=== PATIENT | female | born 1930 | race Caucasian/White ===

== ENCOUNTER 2018-06-11 23:53 | Inpatient (IN) | payer OTHER ==
[2018-06-11 23:58] VITALS: BMI 35.3
--- NOTE | 2018-06-11 23:58 | C.PDOC ---
History Of Present Illness Patient became more short of breath at home. No chest pain or palpitations. Medics gave 1 sl ntg. Pt is some respiratory distress. Placed on bipap on arrival. Speaking in 2-3 word sentences Time Seen by Provider: 06/11/18 23:56 Chief Complaint (Nursing): Respiratory Distress Past Medical History Reviewed: Historical Data, Nursing Documentation, Vital Signs - Medical History PMH: Anxiety (on clonazapam), Arthritis, Asthma, Bronchitis, CHF, COPD, Depression, HTN Denies: Chronic Kidney Disease Family History: States: No Known Family Hx - Social History Hx Tobacco Use: No Hx Alcohol Use: No Hx Substance Use: No - Immunization History Hx Tetanus Toxoid Vaccination: No Hx Influenza Vaccination: No Hx Pneumococcal Vaccination: No ED Course And Treatment - Laboratory Results Result Diagrams: 06/12/18 00:20 06/12/18 01:01 ECG: Interpreted By Me, Viewed By Me ECG Rhythm: Sinus Rhythm (88), L BBB, Nonspecific Changes O2 Sat by Pulse Oximetry: 99 Pulse Ox Interpretation: Normal - Radiology CXR: Interpreted by Me, Viewed By Me CXR Interpretation: Yes: Other (mild vasc congestion, cabg, unchanged from 09/12/15). No: Infiltrates, Fracture, Pnemothorax Critical Care Time - Critical Care Note Total Time (in mins): 30 Documented critical care: time excludes all time spent performing seperately billable procedures. Disposition Discussed With : Mynor Gee Comment: acepted the pt on his service and took over the care at 1:27 AM Doctor Will See Patient In The: Hospital Counseled Patient/Family Regarding: Studies Performed, Diagnosis - Disposition Disposition: HOSPITALIZED Disposition Time: 23:57 Condition: FAIR Forms: [facility] (Pakistani) - POA Present On Arrival: Poor Glycemic Control - Clinical Impression Clinical Impression: Dyspnea, Respiratory distress, COPD exacerbation, CHF (congestive heart failure) Decision To Admit - Pt Status Changed To: Hospital Disposition Of: Inpatient - Admit Certification Admit to Inpatient:: After my assessment, the patient will require hospitalization for at least two midnights. This is because of the severity of symptoms shown, intensity of services needed, and/or the medical risk in this patient being treated as an outpatient. - InPatient: Physician Admission Certification: I certify that this patient requires 2 or more midnights of care for the following reason:: After my assessment, the patient will require hospitalization for at least two midnights. This is because of the severity of symptoms shown, intensity of services needed, and/or the medical risk in this patient being treated as an outpatient. - . Bed Request Type: Telemetry Admitting Physician: Mynor Gee Patient Diagnosis: Dyspnea, Respiratory distress, COPD exacerbation, CHF (congestive heart failure)
[2018-06-12] MEDS: Albuterol-Ipratrop 3 mg / 0.5 (3 ml) UD IH SCH (00:04)
[2018-06-12] MEDS ORDERED: Albuterol-Ipratrop 3 mg / 0.5 (3 ml) UD ONE (00:11)
[2018-06-12 00:30] LABS: BASO # 0.1 K/uL (0.0-0.2); BASO % 0.9 % (0.0-2.0); EOS # 0.2 K/uL (0.0-0.7); EOS % 2.2 % (0.0-4.0); HEMOGLOBIN 11.8 g/dL (11.0-16.0); LYMPH # 1.5 K/uL (1.0-4.3); LYMPH % 15.4 % (20.0-40.0); MEAN CORPUSCULAR HEMOGLOBIN 32.4 pg (27.0-31.0); MEAN CORPUSCULAR HGB CONC 32.7 g/dL (33.0-37.0); MEAN PLATELET VOLUME 10.6 fL (7.2-11.7); MONO # 0.6 K/uL (0.0-0.8); MONO % 5.9 % (0.0-10.0); NEUT # 7.5 K/uL (1.8-7.0); NEUT % 75.6 % (50.0-75.0); RBC 3.66 Mil/uL (3.80-5.20); RED CELL DISTRIBUTION WIDTH 14.7 % (11.5-14.5); WHITE BLOOD COUNT 9.9 K/uL (4.8-10.8)
[2018-06-12 00:37] LABS: PROTHROMBIN TIME 10.7 SECONDS (9.7-12.2)
[2018-06-12 00:45] LABS: ARTERIAL BLOOD GAS HCO3 26.6 mmol/L (21-28); ARTERIAL BLOOD GAS PCO2 49 mm/Hg (35-45); ARTERIAL BLOOD GAS PH 7.37 (7.35-7.45); ARTERIAL BLOOD GAS PO2 90 mm/Hg (80-100); ARTERIAL BLOOD GAS TCO2 29.8 mmol/L (22-28)
[2018-06-12 01:10] LABS: ALB/GLOB RATIO 1.6 (1.0-2.1); ALBUMIN 3.9 g/dL (3.5-5.0); CALCIUM 8.2 mg/dl (8.6-10.4)
[2018-06-12 01:22] LABS: TROPONIN I 0.028 ng/mL (0.00-0.120)
[2018-06-12] MEDS ORDERED: Albuterol-Ipratrop 3 mg / 0.5 (3 ml) UD INH SCH (04:00)
--- NOTE | 2018-06-12 08:42 | RAD ---
Date of service: 06/12/2018 HISTORY: SOB COMPARISON: Portable chest 09/12/2015. FINDINGS: LUNGS: No definite infiltrate is appreciate bilaterally. However, reiteration of linear atelectasis or fibrosis is seen at the periphery of the bilateral lung shirley mildly. PLEURA: No significant pleural effusion identified, no pneumothorax apparent. CARDIOVASCULAR: No aortic atherosclerotic calcification present. Stable cardiomegaly. No definite pulmonary vascular congestion appreciated. No pulmonary vascular congestion. OSSEOUS STRUCTURES: No significant abnormalities. VISUALIZED UPPER ABDOMEN: Normal. OTHER FINDINGS: None. IMPRESSION: Stable cardiomegaly. No definite pulmonary vascular congestion. Fibrotic changes versus linear atelectasis are scattered infrequently bilaterally in the periphery once again.
[2018-06-12] MEDS: Metoprolol Succinate 50 mg XL Tab PO SCH (09:52)
[2018-06-12] MEDS: Pantoprazole 40 mg EC Tab PO SCH (09:52)
[2018-06-12] MEDS ORDERED: Enoxaparin 40 mg Syringe SC SCH (10:00)
[2018-06-12] MEDS ORDERED: DOXYCYCLINE HYCLATE 50 MG PO SCH (10:00)
[2018-06-12] MEDS: Enoxaparin 40 mg Syringe SC SCH (11:00)
[2018-06-12] MEDS: Albuterol-Ipratrop 3 mg / 0.5 (3 ml) UD INH SCH ×2 (12:00→19:39)
[2018-06-12] MEDS: Moxifloxacin IV 400mg/250ml NS 400 MG/250 ML BAG IVPB SCH (14:14)
[2018-06-12] MEDS: MethylPREDNISolone 40 mg Vial IVP SCH ×2 (14:14→21:57)
--- NOTE | 2018-06-12 14:21 | CP.PCM.CON ---
History of Present Illness - History of Present Illness History of Present Illness: reason for consultation: shortness of breath 88-year-old female with long history of smoking in the past, COPD, hypertension who presented to the emergency room with worsening shortness of breath. Denies fever chills, denies chest pain. Also complaining of cough which is mostly dry. Patient was placed on BiPAP for respiratory distress PMHx: HTN, CHF (EF of 35% per son), asthma. 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 FMHx: father for MIN in his 70s. Social: Smoked half a cigar since 9 years old, stopped 2 years ago. Denied ETOH or drugs. Lives alone. Walks with cane and only tolerating one flight Review of Systems - Review of Systems All systems: reviewed and no additional remarkable complaints except (complaini ng of shortness of breath) Past Patient History - Infectious Disease Hx of Infectious Diseases: None - Past Social History Smoking Status: Former Smoker - CARDIAC Hx Congestive Heart Failure: Yes Hx Hypertension: Yes - PULMONARY Hx Asthma: Yes Hx Bronchitis: Yes Hx Chronic Obstructive Pulmonary Disease (COPD): Yes - NEUROLOGICAL Hx Neurological Disorder: Yes - HEENT Hx HEENT Problems: Yes Hx Glaucoma: Yes (on eye drops) Other/Comment: [place] - RENAL Hx Chronic Kidney Disease: No - ENDOCRINE/METABOLIC Hx Endocrine Disorders: No - HEMATOLOGICAL/ONCOLOGICAL Hx Blood Disorders: No - INTEGUMENTARY Hx Dermatological Problems: No - MUSCULOSKELETAL/RHEUMATOLOGICAL Hx Arthritis: Yes Hx Falls: Yes - GASTROINTESTINAL Hx Gastrointestinal Disorders: Yes Other/Comment: constipation - GENITOURINARY/GYNECOLOGICAL Hx Genitourinary Disorders: Yes Hx Urinary Tract Infection: Yes Other/Comment: bladder surgery pulled it up - PSYCHIATRIC Hx Anxiety: Yes (on clonazapam) Hx Depression: Yes Hx Substance Use: No - SURGICAL HISTORY Hx Surgeries: Yes Hx Eye Surgery: Yes Other/Comment: mitral valve repair- 15yrs ago - ANESTHESIA Hx Anesthesia: Yes Hx Anesthesia Reactions: No Hx Malignant Hyperthermia: No Meds Allergies/Adverse Reactions: Allergies Allergy/AdvReac Type Severity Reaction Status Date / Time Penicillins Allergy Severe RASH Verified 09/12/15 05:17 urografina,amidotrzoato de Allergy Severe RASH Uncoded 09/12/15 05:17 meglumin - Medications Medications: Current Medications Albuterol/Ipratropium (Duoneb 3 Mg/0.5 Mg (3 Ml) Ud) 3 ml INH Q6 [facility] Stop: 06/17/18 04:01 Last Admin: 06/12/18 12:00 Dose: Not Given Amlodipine Besylate (Norvasc) 5 mg PO DAILY [facility] Last Admin: 06/12/18 09:52 Dose: 5 mg Aspirin (Ecotrin) 81 mg PO DAILY [facility] Last Admin: 06/12/18 09:52 Dose: 81 mg Carvedilol (Coreg) 12.5 mg PO BID [facility] Last Admin: 06/12/18 09:51 Dose: 12.5 mg Clonazepam (Klonopin) 0.5 mg PO DAILY [facility] Last Admin: 06/12/18 09:52 Dose: 0.5 mg Enoxaparin Sodium (Lovenox) 40 mg SC DAILY [facility] Furosemide (Lasix) 40 mg IVP DAILY [facility] Last Admin: 06/12/18 09:52 Dose: 40 mg Home Med (Doxycycline Hyclate [Doxycycline Hyclate]) 50 mg PO DAILY [facility] Moxifloxacin HCl (Avelox Iv 400mg/250ml Ns) 400 mg in 250 mls @ 167 mls/hr IVPB Q24H [facility]; Protocol Last Admin: 06/12/18 14:14 Dose: 167 mls/hr Latanoprost (Xalatan Opht) 0 ml OU HS [facility] Methylprednisolone (Solu-Medrol) 40 mg IVP Q8 [facility] Last Admin: 06/12/18 14:14 Dose: 40 mg Metoprolol Succinate (Toprol Xl) 50 mg PO DAILY [facility] Last Admin: 06/12/18 09:52 Dose: 50 mg Pantoprazole Sodium (Protonix Ec Tab) 40 mg PO DAILY [facility] Last Admin: 06/12/18 09:52 Dose: 40 mg Physical Exam - Head Exam Head Exam: ATRAUMATIC, NORMOCEPHALIC - Eye Exam Eye Exam: Normal appearance - ENT Exam ENT Exam: Mucous Membranes Moist - Neck Exam Neck exam: Positive for: Normal Inspection - Respiratory Exam Respiratory Exam: Decreased Breath Sounds, Rales - Cardiovascular Exam Cardiovascular Exam: REGULAR RHYTHM - GI/Abdominal Exam GI & Abdominal Exam: Normal Bowel Sounds, Soft - Extremities Exam Extremities exam: Positive for: normal inspection - Neurological Exam Neurological exam: Alert, Oriented x3 Results - Vital Signs Recent Vital Signs: Last Vital Signs Temp 98 F 12/25/18 07:00 Pulse 84 06/12/18 07:00 Resp 20 06/12/18 07:00 BP 122/69 06/12/18 09:52 Pulse Ox 100 06/12/18 07:00 - Labs Result Diagrams: 06/12/18 00:20 06/12/18 01:01 Labs: Laboratory Results - last 24 hr 06/12/18 06/12/18 06/12/18 00:08 00:20 00:20 WBC 9.9 RBC 3.66 L Hgb 11.8 Hct 36.2 MCV 99.0 D MCH 32.4 H MCHC 32.7 L RDW 14.7 H Plt Count 290 MPV 10.6 Neut % (Auto) 75.6 H Lymph % (Auto) 15.4 L [place] % (Auto) 5.9 Eos % (Auto) 2.2 Baso % (Auto) 0.9 Neut # (Auto) 7.5 H Lymph # (Auto) 1.5 [place] # (Auto) 0.6 Eos # (Auto) 0.2 Baso # (Auto) 0.1 PT 10.7 INR 1.0 APTT 30 Puncture Site pCO2 pO2 HCO3 ABG pH ABG Total CO2 ABG O2 Saturation ABG Base Excess [place] Test ABG Potassium A-a O2 Difference Respiratory Index Sodium Chloride Glucose Lactate Vent Mode Mechanical Rate FiO2 Inspiratory BiPAP Expiratory BiPAP Potassium Carbon Dioxide Anion Gap BUN Creatinine Est GFR ( Amer) Est GFR (Non-Af Amer) POC Glucose (mg/dL) 99 Random Glucose Calcium Total Bilirubin AST ALT Alkaline Phosphatase Troponin I NT-Pro-B Natriuret Pep Total Protein Albumin Globulin Albumin/Globulin Ratio Arterial Blood Potassium 06/12/18 06/12/18 06/12/18 00:33 01:01 11:36 WBC RBC Hgb Hct MCV MCH MCHC RDW Plt Count MPV Neut % (Auto) Lymph % (Auto) [place] % (Auto) Eos % (Auto) Baso % (Auto) Neut # (Auto) Lymph # (Auto) [place] # (Auto) Eos # (Auto) Baso # (Auto) PT INR APTT Puncture Site R bra pCO2 49 H pO2 90 HCO3 26.6 ABG pH 7.37 ABG Total CO2 29.8 H ABG O2 Saturation 98.0 ABG Base Excess 2.2 [place] Test Na ABG Potassium 3.8 A-a O2 Difference 134.0 Respiratory Index 1.5 Sodium 140.0 138 Chloride 108.0 H 104 Glucose 135 H Lactate 1.3 Vent Mode Bipap Mechanical Rate 12 FiO2 40.0 Inspiratory BiPAP 10 Expiratory BiPAP 5 Potassium 4.1 Carbon Dioxide 28 Anion Gap 10 BUN 17 Creatinine 1.2 Est GFR ( Amer) 51 Est GFR (Non-Af Amer) 42 POC Glucose (mg/dL) Random Glucose 121 H Calcium 8.2 L Total Bilirubin 0.4 AST 58 H ALT 37 Alkaline Phosphatase 94 Troponin I 0.0280 0.0850 NT-Pro-B Natriuret Pep 1340 H Total Protein 6.4 Albumin 3.9 Globulin 2.5 Albumin/Globulin Ratio 1.6 Arterial Blood Potassium 3.8 Assessment & Plan (1) COPD exacerbation Status: Acute Comment: nebulizer treatment and steroids. BiPAP as needed (2) CHF (congestive heart failure) Status: Acute Comment: Repeat echocardiogram last ejection fraction 35%. Diuretics. Cardiology workup
--- NOTE | 2018-06-12 20:46 | CP.PCM.HP ---
Past Patient History - Infectious Disease Hx of Infectious Diseases: None - Past Social History Smoking Status: Former Smoker - CARDIAC Hx Congestive Heart Failure: Yes Hx Hypertension: Yes - PULMONARY Hx Asthma: Yes Hx Bronchitis: Yes Hx Chronic Obstructive Pulmonary Disease (COPD): Yes - NEUROLOGICAL Hx Neurological Disorder: Yes - HEENT Hx HEENT Problems: Yes Hx Glaucoma: Yes (on eye drops) Other/Comment: [place] - RENAL Hx Chronic Kidney Disease: No - ENDOCRINE/METABOLIC Hx Endocrine Disorders: No - HEMATOLOGICAL/ONCOLOGICAL Hx Blood Disorders: No - INTEGUMENTARY Hx Dermatological Problems: No - MUSCULOSKELETAL/RHEUMATOLOGICAL Hx Arthritis: Yes Hx Falls: Yes - GASTROINTESTINAL Hx Gastrointestinal Disorders: Yes Other/Comment: constipation - GENITOURINARY/GYNECOLOGICAL Hx Genitourinary Disorders: Yes Hx Urinary Tract Infection: Yes Other/Comment: bladder surgery pulled it up - PSYCHIATRIC Hx Anxiety: Yes (on clonazapam) Hx Depression: Yes Hx Substance Use: No - SURGICAL HISTORY Hx Surgeries: Yes Hx Eye Surgery: Yes Other/Comment: mitral valve repair- 15yrs ago - ANESTHESIA Hx Anesthesia: Yes Hx Anesthesia Reactions: No Hx Malignant Hyperthermia: No Meds Allergies/Adverse Reactions: Allergies Allergy/AdvReac Type Severity Reaction Status Date / Time Penicillins Allergy Severe RASH Verified 09/12/15 05:17 urografina,amidotrzoato de Allergy Severe RASH Uncoded 09/12/15 05:17 meglumin Physical Exam - Constitutional Appears: Well - Head Exam Head Exam: ATRAUMATIC, NORMAL INSPECTION, NORMOCEPHALIC - Eye Exam Eye Exam: EOMI, Normal appearance, PERRL Pupil Exam: NORMAL ACCOMODATION, PERRL - ENT Exam ENT Exam: Mucous Membranes Moist, Normal Exam - Neck Exam Neck exam: Positive for: Normal Inspection - Respiratory Exam Respiratory Exam: Decreased Breath Sounds - Cardiovascular Exam Cardiovascular Exam: REGULAR RHYTHM, +S1, +S2 - GI/Abdominal Exam GI & Abdominal Exam: Diminished Bowel Sounds, Soft - Rectal Exam Rectal Exam: Deferred Results - Vital Signs Recent Vital Signs: Last Vital Signs Temp 97.4 F L 06/12/18 15:27 Pulse 84 06/12/18 15:27 Resp 20 06/12/18 15:27 BP 109/73 06/12/18 17:43 Pulse Ox 98 06/12/18 15:27 - Labs Result Diagrams: 06/12/18 00:20 06/12/18 01:01 Labs: Laboratory Results - last 24 hr 06/12/18 06/12/18 06/12/18 00:08 00:20 00:20 WBC 9.9 RBC 3.66 L Hgb 11.8 Hct 36.2 MCV 99.0 D MCH 32.4 H MCHC 32.7 L RDW 14.7 H Plt Count 290 MPV 10.6 Neut % (Auto) 75.6 H Lymph % (Auto) 15.4 L [place] % (Auto) 5.9 Eos % (Auto) 2.2 Baso % (Auto) 0.9 Neut # (Auto) 7.5 H Lymph # (Auto) 1.5 [place] # (Auto) 0.6 Eos # (Auto) 0.2 Baso # (Auto) 0.1 PT 10.7 INR 1.0 APTT 30 Puncture Site pCO2 pO2 HCO3 ABG pH ABG Total CO2 ABG O2 Saturation ABG Base Excess [place] Test ABG Potassium A-a O2 Difference Respiratory Index Sodium Chloride Glucose Lactate Vent Mode Mechanical Rate FiO2 Inspiratory BiPAP Expiratory BiPAP Potassium Carbon Dioxide Anion Gap BUN Creatinine Est GFR ( Amer) Est GFR (Non-Af Amer) POC Glucose (mg/dL) 99 Random Glucose Calcium Total Bilirubin AST ALT Alkaline Phosphatase Troponin I NT-Pro-B Natriuret Pep Total Protein Albumin Globulin Albumin/Globulin Ratio Arterial Blood Potassium 06/12/18 06/12/18 06/12/18 00:33 01:01 11:36 WBC RBC Hgb Hct MCV MCH MCHC RDW Plt Count MPV Neut % (Auto) Lymph % (Auto) [place] % (Auto) Eos % (Auto) Baso % (Auto) Neut # (Auto) Lymph # (Auto) [place] # (Auto) Eos # (Auto) Baso # (Auto) PT INR APTT Puncture Site R bra pCO2 49 H pO2 90 HCO3 26.6 ABG pH 7.37 ABG Total CO2 29.8 H ABG O2 Saturation 98.0 ABG Base Excess 2.2 [place] Test Na ABG Potassium 3.8 A-a O2 Difference 134.0 Respiratory Index 1.5 Sodium 140.0 138 Chloride 108.0 H 104 Glucose 135 H Lactate 1.3 Vent Mode Bipap Mechanical Rate 12 FiO2 40.0 Inspiratory BiPAP 10 Expiratory BiPAP 5 Potassium 4.1 Carbon Dioxide 28 Anion Gap 10 BUN 17 Creatinine 1.2 Est GFR ( Amer) 51 Est GFR (Non-Af Amer) 42 POC Glucose (mg/dL) Random Glucose 121 H Calcium 8.2 L Total Bilirubin 0.4 AST 58 H ALT 37 Alkaline Phosphatase 94 Troponin I 0.0280 0.0850 NT-Pro-B Natriuret Pep 1340 H Total Protein 6.4 Albumin 3.9 Globulin 2.5 Albumin/Globulin Ratio 1.6 Arterial Blood Potassium 3.8 06/12/18 16:27 WBC RBC Hgb Hct MCV MCH MCHC RDW Plt Count MPV Neut % (Auto) Lymph % (Auto) [place] % (Auto) Eos % (Auto) Baso % (Auto) Neut # (Auto) Lymph # (Auto) [place] # (Auto) Eos # (Auto) Baso # (Auto) PT INR APTT Puncture Site pCO2 pO2 HCO3 ABG pH ABG Total CO2 ABG O2 Saturation ABG Base Excess [place] Test ABG Potassium A-a O2 Difference Respiratory Index Sodium Chloride Glucose Lactate Vent Mode Mechanical Rate FiO2 Inspiratory BiPAP Expiratory BiPAP Potassium Carbon Dioxide Anion Gap BUN Creatinine Est GFR ( Amer) Est GFR (Non-Af Amer) POC Glucose (mg/dL) Random Glucose Calcium Total Bilirubin AST ALT Alkaline Phosphatase Troponin I 0.0750 NT-Pro-B Natriuret Pep Total Protein Albumin Globulin Albumin/Globulin Ratio Arterial Blood Potassium
[2018-06-12] MEDS: Latanoprost 2.5 ml Opht Soln OU SCH ×2 (21:57→22:02)
[2018-06-13] MEDS: Albuterol-Ipratrop 3 mg / 0.5 (3 ml) UD INH SCH ×4 (00:30→20:42)
[2018-06-13] MEDS: MethylPREDNISolone 40 mg Vial IVP SCH ×3 (05:43→21:32)
[2018-06-13] MEDS: Enoxaparin 40 mg Syringe SC SCH (10:03)
[2018-06-13] MEDS: Pantoprazole 40 mg EC Tab PO SCH (10:03)
[2018-06-13] MEDS: Metoprolol Succinate 50 mg XL Tab PO SCH (10:03)
[2018-06-13] MEDS: Moxifloxacin IV 400mg/250ml NS 400 MG/250 ML BAG IVPB SCH (11:53)
[2018-06-13 13:54] LABS: SQUAMOUS EPITHIAL 5 /hpf (0-5); URINE BILIRUBIN NEGATIVE (NEGATIVE); URINE BLOOD NEGATIVE (NEGATIVE); URINE CLARITY Clear (Clear); URINE COLOR Yellow (YELLOW); URINE GLUCOSE (UA) NORMAL (Normal); URINE LEUKOCYTE ESTERASE NEG Leu/uL (Negative); URINE PROTEIN NEGATIVE (NEGATIVE); URINE UROBILINOGEN NORMAL mg/dL (0.2-1.0)
--- NOTE | 2018-06-13 15:36 | CP.PCM.PN ---
Subjective - Date & Time of Evaluation Date of Evaluation: 06/13/18 Time of Evaluation: 14:20 - Subjective Subjective: 88 year old female with pmh asthma bronchitis, chf consulted for COPD. Patient evaluated at bedside, no acute distress. Reports overall feeling a little better today but still some chest tightness and discomfort. Still has cough and phlegm. Afebrile Decreased breath sounds. Continue nebulizer and steroids BiPap as needed Objective - Vital Signs/Intake and Output Vital Signs (last 24 hours): Temp Pulse Resp BP Pulse Ox 98.2 F 80 20 126/64 93 L 06/13/18 07:00 06/13/18 12:00 06/13/18 07:00 06/13/18 10:03 06/13/18 07:00 Intake and Output: 06/13/18 06/13/18 06:59 18:59 Intake Total 650 Balance 650 - Medications Medications: Current Medications Albuterol/Ipratropium (Duoneb 3 Mg/0.5 Mg (3 Ml) Ud) 3 ml INH Q6 [facility] Stop: 06/17/18 04:01 Last Admin: 06/13/18 11:50 Dose: 3 ml Amlodipine Besylate (Norvasc) 5 mg PO DAILY [facility] Last Admin: 06/13/18 10:03 Dose: 5 mg Aspirin (Ecotrin) 81 mg PO DAILY [facility] Last Admin: 06/13/18 10:03 Dose: 81 mg Carvedilol (Coreg) 12.5 mg PO BID [facility] Last Admin: 06/13/18 10:03 Dose: 12.5 mg Clonazepam (Klonopin) 0.5 mg PO HS [facility] Enoxaparin Sodium (Lovenox) 30 mg SC DAILY [facility] Last Admin: 06/13/18 10:03 Dose: 30 mg Furosemide (Lasix) 40 mg IVP DAILY [facility] Last Admin: 06/13/18 10:03 Dose: 40 mg Moxifloxacin HCl (Avelox Iv 400mg/250ml Ns) 400 mg in 250 mls @ 167 mls/hr IVPB Q24H [facility]; Protocol Last Admin: 06/13/18 11:53 Dose: 167 mls/hr Latanoprost (Xalatan Opht) 0 ml OU HS [facility] Last Admin: 06/12/18 22:02 Dose: Not Given Methylprednisolone (Solu-Medrol) 40 mg IVP Q8 [facility] Last Admin: 06/13/18 14:01 Dose: Not Given Metoprolol Succinate (Toprol Xl) 50 mg PO DAILY [facility] Last Admin: 06/13/18 10:03 Dose: 50 mg Pantoprazole Sodium (Protonix Ec Tab) 40 mg PO DAILY [facility] Last Admin: 06/13/18 10:03 Dose: 40 mg - Labs Labs: 06/12/18 00:20 06/12/18 01:01 PT 10.7 SECONDS (9.7-12.2) 06/12/18 00:20 INR 1.0 06/12/18 00:20 APTT 30 SECONDS (21-34) 06/12/18 00:20 Assessment and Plan (1) COPD exacerbation Status: Acute (2) CHF (congestive heart failure) Status: Acute
--- NOTE | 2018-06-13 17:52 | CARD ---
APPROVED REPORT Date of service: 06/11/2018 EKG Measurement Heart [id number] <Conclusion> Sinus rhythm with premature atrial complexes Left bundle branch block Abnormal ECG
--- NOTE | 2018-06-13 19:39 | CARD ---
APPROVED REPORT Date of service: 06/12/2018 EKG Measurement Heart [id number] <Conclusion> Normal sinus rhythm Left bundle branch block Abnormal ECG
--- NOTE | 2018-06-13 21:06 | CP.PCM.PN ---
Subjective - Date & Time of Evaluation Date of Evaluation: 06/13/18 Time of Evaluation: 12:30 - Subjective Subjective: clinically same Objective - Vital Signs/Intake and Output Vital Signs (last 24 hours): Temp Pulse Resp BP Pulse Ox 97.8 F 77 18 110/63 98 06/13/18 15:05 06/13/18 18:00 06/13/18 15:05 06/13/18 17:49 06/13/18 15:05 Intake and Output: 06/13/18 06/14/18 18:59 06:59 Intake Total 650 Balance 650 - Medications Medications: Current Medications Albuterol/Ipratropium (Duoneb 3 Mg/0.5 Mg (3 Ml) Ud) 3 ml INH Q6 [facility] Stop: 06/17/18 04:01 Last Admin: 06/13/18 20:42 Dose: 3 ml Amlodipine Besylate (Norvasc) 5 mg PO DAILY [facility] Last Admin: 06/13/18 10:03 Dose: 5 mg Aspirin (Ecotrin) 81 mg PO DAILY [facility] Last Admin: 06/13/18 10:03 Dose: 81 mg Carvedilol (Coreg) 12.5 mg PO BID [facility] Last Admin: 06/13/18 17:49 Dose: 12.5 mg Clonazepam (Klonopin) 0.5 mg PO HS [facility] Enoxaparin Sodium (Lovenox) 30 mg SC DAILY [facility] Last Admin: 06/13/18 10:03 Dose: 30 mg Furosemide (Lasix) 40 mg IVP DAILY [facility] Last Admin: 06/13/18 10:03 Dose: 40 mg Moxifloxacin HCl (Avelox Iv 400mg/250ml Ns) 400 mg in 250 mls @ 167 mls/hr IVPB Q24H [facility]; Protocol Last Admin: 06/13/18 11:53 Dose: 167 mls/hr Latanoprost (Xalatan Opht) 0 ml OU HS [facility] Last Admin: 06/12/18 22:02 Dose: Not Given Methylprednisolone (Solu-Medrol) 40 mg IVP Q8 [facility] Last Admin: 06/13/18 14:01 Dose: Not Given Metoprolol Succinate (Toprol Xl) 50 mg PO DAILY [facility] Last Admin: 06/13/18 10:03 Dose: 50 mg Pantoprazole Sodium (Protonix Ec Tab) 40 mg PO DAILY [facility] Last Admin: 06/13/18 10:03 Dose: 40 mg - Labs Labs: 06/12/18 00:20 06/12/18 01:01 PT 10.7 SECONDS (9.7-12.2) 06/12/18 00:20 INR 1.0 06/12/18 00:20 APTT 30 SECONDS (21-34) 06/12/18 00:20 - Constitutional Appears: Well - Head Exam Head Exam: ATRAUMATIC, NORMAL INSPECTION, NORMOCEPHALIC - Eye Exam Eye Exam: EOMI, Normal appearance, PERRL Pupil Exam: NORMAL ACCOMODATION, PERRL - ENT Exam ENT Exam: Mucous Membranes Moist, Normal Exam - Neck Exam Neck Exam: Full ROM, Normal Inspection. absent: Lymphadenopathy - Respiratory Exam Respiratory Exam: Decreased Breath Sounds - Cardiovascular Exam Cardiovascular Exam: REGULAR RHYTHM, +S1, +S2 - GI/Abdominal Exam GI & Abdominal Exam: Soft, Diminished Bowel Sounds - Rectal Exam Rectal Exam: Deferred
[2018-06-13] MEDS: Latanoprost 2.5 ml Opht Soln OU SCH (22:00)
[2018-06-14] MEDS: Albuterol-Ipratrop 3 mg / 0.5 (3 ml) UD INH SCH ×4 (01:10→19:57)
[2018-06-14] MEDS: MethylPREDNISolone 40 mg Vial IVP SCH ×3 (06:28→21:35)
[2018-06-14] MEDS: Pantoprazole 40 mg EC Tab PO SCH (10:46)
[2018-06-14] MEDS: Metoprolol Succinate 50 mg XL Tab PO SCH (10:46)
[2018-06-14] MEDS: Enoxaparin 30 mg Syringe SC SCH (10:46)
[2018-06-14] MEDS: Enoxaparin 40 mg Syringe SC SCH (10:55)
--- NOTE | 2018-06-14 15:22 | CP.PCM.PN ---
Subjective - Date & Time of Evaluation Date of Evaluation: 06/14/18 Time of Evaluation: 11:00 - Subjective Subjective: clinically same Objective - Vital Signs/Intake and Output Vital Signs (last 24 hours): Temp Pulse Resp BP Pulse Ox 98.0 F 75 18 134/68 97 06/14/18 08:25 06/14/18 12:00 06/14/18 08:25 06/14/18 10:51 06/14/18 08:25 Intake and Output: 06/14/18 06/14/18 06:59 18:59 Intake Total 720 Balance 720 - Medications Medications: Current Medications Albuterol/Ipratropium (Duoneb 3 Mg/0.5 Mg (3 Ml) Ud) 3 ml INH Q6 [facility] Stop: 06/17/18 04:01 Last Admin: 06/14/18 13:57 Dose: 3 ml Amlodipine Besylate (Norvasc) 5 mg PO DAILY [facility] Last Admin: 06/14/18 10:46 Dose: 5 mg Aspirin (Ecotrin) 81 mg PO DAILY [facility] Last Admin: 06/14/18 10:46 Dose: 81 mg Carvedilol (Coreg) 12.5 mg PO BID [facility] Last Admin: 06/14/18 10:51 Dose: 12.5 mg Clonazepam (Klonopin) 0.5 mg PO HS [facility] Last Admin: 06/13/18 21:28 Dose: 0.5 mg Enoxaparin Sodium (Lovenox) 30 mg SC DAILY [facility] Last Admin: 06/14/18 10:46 Dose: 30 mg Furosemide (Lasix) 40 mg IVP DAILY [facility] Last Admin: 06/14/18 10:46 Dose: 40 mg Latanoprost (Xalatan Opht) 0 ml OU HS [facility] Last Admin: 06/13/18 22:00 Dose: 2.5 ml Methylprednisolone (Solu-Medrol) 40 mg IVP Q8 [facility] Last Admin: 06/14/18 13:42 Dose: 40 mg Metoprolol Succinate (Toprol Xl) 50 mg PO DAILY [facility] Last Admin: 06/14/18 10:46 Dose: 50 mg Moxifloxacin HCl (Avelox) 400 mg PO Q24H [facility] Last Admin: 06/14/18 13:15 Dose: 400 mg Pantoprazole Sodium (Protonix Ec Tab) 40 mg PO DAILY [facility] Last Admin: 06/14/18 10:46 Dose: 40 mg - Labs Labs: 06/12/18 00:20 06/12/18 01:01 PT 10.7 SECONDS (9.7-12.2) 06/12/18 00:20 INR 1.0 06/12/18 00:20 APTT 30 SECONDS (21-34) 06/12/18 00:20 - Constitutional Appears: Well - Head Exam Head Exam: ATRAUMATIC, NORMAL INSPECTION, NORMOCEPHALIC - Eye Exam Eye Exam: EOMI, Normal appearance, PERRL Pupil Exam: NORMAL ACCOMODATION, PERRL - ENT Exam ENT Exam: Mucous Membranes Moist, Normal Exam - Neck Exam Neck Exam: Full ROM, Normal Inspection. absent: Lymphadenopathy - Respiratory Exam Respiratory Exam: Decreased Breath Sounds - Cardiovascular Exam Cardiovascular Exam: REGULAR RHYTHM, +S1, +S2 - GI/Abdominal Exam GI & Abdominal Exam: Soft, Diminished Bowel Sounds - Rectal Exam Rectal Exam: Deferred
--- NOTE | 2018-06-14 15:43 | CP.PCM.CON ---
History of Present Illness - History of Present Illness History of Present Illness: Consulation for CHF / hx of MV repair HPI: 88-year-old female with past medical history significant for hypertension CHF status post mitral valve repair that was done about 6 years ago in [facility] presenting with complaint of bilateral lower extremity edema and worsening shortness of breath for 2 weeks prior to presentation patient he essentially lives in [place] and follows with a cook specialty foreign food over there but was but is visiting her son and not [place] where she started to get sick and developed severe shortness of breath she denied having any chest pains according to the son the last ischemic evaluation was more than 5 years ago. Review of Systems - Review of Systems Systems not reviewed;Unavailable: Acuity of Condition - Constitutional Constitutional: As Per HPI - EENT Eyes: As Per HPI Ears: As Per HPI Nose/Mouth/Throat: As Per HPI - Breasts Breasts: As Per HPI - Cardiovascular Cardiovascular: As Per HPI - Respiratory Respiratory: As Per HPI - Gastrointestinal Gastrointestinal: As Per HPI Past Patient History - Infectious Disease Hx of Infectious Diseases: None - Past Social History Smoking Status: Former Smoker - CARDIAC Hx Congestive Heart Failure: Yes Hx Hypertension: Yes - PULMONARY Hx Chronic Obstructive Pulmonary Disease (COPD): Yes - NEUROLOGICAL Hx Neurological Disorder: Yes - HEENT Hx HEENT Problems: Yes Hx Glaucoma: Yes (on eye drops) Other/Comment: [place] - RENAL Hx Chronic Kidney Disease: No - ENDOCRINE/METABOLIC Hx Endocrine Disorders: No - HEMATOLOGICAL/ONCOLOGICAL Hx Blood Disorders: No - INTEGUMENTARY Hx Dermatological Problems: No - MUSCULOSKELETAL/RHEUMATOLOGICAL Hx Arthritis: Yes - GASTROINTESTINAL Hx Gastrointestinal Disorders: Yes Other/Comment: constipation - GENITOURINARY/GYNECOLOGICAL Hx Genitourinary Disorders: Yes Hx Urinary Tract Infection: Yes Other/Comment: bladder surgery pulled it up - PSYCHIATRIC Hx Anxiety: Yes (on clonazapam) Hx Depression: Yes Hx Substance Use: No - SURGICAL HISTORY Hx Surgeries: Yes Hx Eye Surgery: Yes Other/Comment: mitral valve repair- 15yrs ago - ANESTHESIA Hx Anesthesia: Yes Hx Anesthesia Reactions: No Hx Malignant Hyperthermia: No Meds Allergies/Adverse Reactions: Allergies Allergy/AdvReac Type Severity Reaction Status Date / Time Penicillins Allergy Severe RASH Verified 09/12/15 05:17 urografina,amidotrzoato de Allergy Severe RASH Uncoded 09/12/15 05:17 meglumin - Medications Medications: Current Medications Albuterol/Ipratropium (Duoneb 3 Mg/0.5 Mg (3 Ml) Ud) 3 ml INH Q6 [facility] Stop: 06/17/18 04:01 Last Admin: 06/14/18 13:57 Dose: 3 ml Amlodipine Besylate (Norvasc) 5 mg PO DAILY [facility] Last Admin: 06/14/18 10:46 Dose: 5 mg Aspirin (Ecotrin) 81 mg PO DAILY [facility] Last Admin: 06/14/18 10:46 Dose: 81 mg Carvedilol (Coreg) 12.5 mg PO BID [facility] Last Admin: 06/14/18 10:51 Dose: 12.5 mg Clonazepam (Klonopin) 0.5 mg PO HS [facility] Last Admin: 06/13/18 21:28 Dose: 0.5 mg Enoxaparin Sodium (Lovenox) 30 mg SC DAILY [facility] Last Admin: 06/14/18 10:46 Dose: 30 mg Furosemide (Lasix) 40 mg IVP DAILY [facility] Last Admin: 06/14/18 10:46 Dose: 40 mg Latanoprost (Xalatan Opht) 0 ml OU HS [facility] Last Admin: 06/13/18 22:00 Dose: 2.5 ml Methylprednisolone (Solu-Medrol) 40 mg IVP Q8 [facility] Last Admin: 06/14/18 13:42 Dose: 40 mg Metoprolol Succinate (Toprol Xl) 50 mg PO DAILY [facility] Last Admin: 06/14/18 10:46 Dose: 50 mg Moxifloxacin HCl (Avelox) 400 mg PO Q24H [facility] Last Admin: 06/14/18 13:15 Dose: 400 mg Pantoprazole Sodium (Protonix Ec Tab) 40 mg PO DAILY [facility] Last Admin: 06/14/18 10:46 Dose: 40 mg Physical Exam - Constitutional Appears: Well - Head Exam Head Exam: ATRAUMATIC, NORMAL INSPECTION, NORMOCEPHALIC - Eye Exam Eye Exam: EOMI, Normal appearance, PERRL Pupil Exam: NORMAL ACCOMODATION, PERRL - ENT Exam ENT Exam: Mucous Membranes Moist, Normal Exam - Neck Exam Neck exam: Positive for: Normal Inspection - Respiratory Exam Respiratory Exam: Clear to Auscultation Bilateral, Rales, NORMAL BREATHING PATTERN - Cardiovascular Exam Cardiovascular Exam: REGULAR RHYTHM, RRR, +S1, +S2, Systolic Murmur - GI/Abdominal Exam GI & Abdominal Exam: Normal Bowel Sounds, Soft. absent: Tenderness - Extremities Exam Extremities exam: Positive for: normal inspection - Back Exam Back exam: NORMAL INSPECTION - Neurological Exam Neurological exam: Alert, CN II-XII Intact, Normal Gait, Oriented x3, Reflexes Normal - Psychiatric Exam Psychiatric exam: Normal Affect, Normal Mood - Skin Skin Exam: Dry, Intact, Normal Color, Warm Results - Vital Signs Recent Vital Signs: Last Vital Signs Temp 98.0 F 06/14/18 08:25 Pulse 75 06/14/18 12:00 Resp 18 06/14/18 08:25 BP 134/68 06/14/18 10:51 Pulse Ox 97 06/14/18 08:25 - Labs Result Diagrams: 06/18/18 07:05 06/18/18 07:05 Labs: Laboratory Results - last 24 hr 06/14/18 02:19 POC Glucose (mg/dL) 150 H Assessment & Plan (1) CHF (congestive heart failure) Assessment and Plan: 2'to acute diastolic ? ischemia ekg ? stress testing IV lasix bb arb Status: Acute Priority: High (2) COPD exacerbation Status: Acute Priority: High (3) Dyspnea Status: Acute Priority: High (4) Respiratory distress Status: Acute Priority: High
[2018-06-14] MEDS: Latanoprost 2.5 ml Opht Soln OU SCH (22:07)
--- NOTE | 2018-06-14 23:02 | CP.PCM.CON ---
History of Present Illness - History of Present Illness History of Present Illness: Pulmonary Consult, for COPD exacerbation. The patient was Seen/interviewed and examined by me at the bedside, Medical records reviewed and Management issues were discussed and formulated with the house staff. Events reviewed Mrs Lemus is a 88 year old female with PMHx of asthma, bronchitis, CHF (EF of 35% per son) and long history of smoking in the past who presented to the emergency room with worsening shortness of breath. Denies fever chills, denies chest pain. Also complaining of cough which is mostly dry. Patient was placed on BiPAP for respiratory distress Reports overall feeling a little better today but still some chest tightness and discomfort. Still has dry cough. No hemoptysis. Awake, Comfortable, no acute distress. Afebrile, on NC 2LPM. Undergoing nebulizer treatment at time of exam Decreased breath sounds with wheezing on Exam. PMHx: As per H&P PSHx: mitral valve repair 15 years ago, prolapsed bladder repair 5 years ago. FMHx: father for MIN in his 70s. Social: Smoked half a cigar since 9 years old, stopped 2 years ago. Denied ETOH or drugs. Lives alone. Walks with cane and only tolerating one flight Review of Systems - Constitutional Constitutional: absent: Anorexia, Chills, Daytime Sleepiness, Fever, Sleep Apnea - Cardiovascular Cardiovascular: absent: Chest Pain, Chest Pain at Rest, Chest Pain with Activity, Claudication - Respiratory Respiratory: Cough, Dyspnea, Dyspnea on Exertion, Wheezing. absent: Hemoptysis, Snoring, Stridor - Gastrointestinal Gastrointestinal: absent: Abdominal Pain, Nausea, Vomiting Past Patient History - Infectious Disease Hx of Infectious Diseases: None - Past Social History Smoking Status: Former Smoker - CARDIAC Hx Congestive Heart Failure: Yes Hx Hypertension: Yes - PULMONARY Hx Chronic Obstructive Pulmonary Disease (COPD): Yes - NEUROLOGICAL Hx Neurological Disorder: Yes - HEENT Hx HEENT Problems: Yes Hx Glaucoma: Yes (on eye drops) Other/Comment: [place] - RENAL Hx Chronic Kidney Disease: No - ENDOCRINE/METABOLIC Hx Endocrine Disorders: No - HEMATOLOGICAL/ONCOLOGICAL Hx Blood Disorders: No - INTEGUMENTARY Hx Dermatological Problems: No - MUSCULOSKELETAL/RHEUMATOLOGICAL Hx Arthritis: Yes - GASTROINTESTINAL Hx Gastrointestinal Disorders: Yes Other/Comment: constipation - GENITOURINARY/GYNECOLOGICAL Hx Genitourinary Disorders: Yes Hx Urinary Tract Infection: Yes Other/Comment: bladder surgery pulled it up - PSYCHIATRIC Hx Anxiety: Yes (on clonazapam) Hx Depression: Yes Hx Substance Use: No - SURGICAL HISTORY Hx Surgeries: Yes Hx Eye Surgery: Yes Other/Comment: mitral valve repair- 15yrs ago - ANESTHESIA Hx Anesthesia: Yes Hx Anesthesia Reactions: No Hx Malignant Hyperthermia: No Meds Allergies/Adverse Reactions: Allergies Allergy/AdvReac Type Severity Reaction Status Date / Time Penicillins Allergy Severe RASH Verified 09/12/15 05:17 urografina,amidotrzoato de Allergy Severe RASH Uncoded 09/12/15 05:17 meglumin - Medications Medications: Current Medications Albuterol/Ipratropium (Duoneb 3 Mg/0.5 Mg (3 Ml) Ud) 3 ml INH Q6 [facility] Stop: 06/17/18 04:01 Last Admin: 06/14/18 19:57 Dose: 3 ml Amlodipine Besylate (Norvasc) 5 mg PO DAILY [facility] Last Admin: 06/14/18 10:46 Dose: 5 mg Aspirin (Ecotrin) 81 mg PO DAILY [facility] Last Admin: 06/14/18 10:46 Dose: 81 mg Carvedilol (Coreg) 12.5 mg PO BID [facility] Last Admin: 06/14/18 18:13 Dose: 12.5 mg Clonazepam (Klonopin) 0.5 mg PO HS [facility] Last Admin: 06/14/18 21:33 Dose: 0.5 mg Enoxaparin Sodium (Lovenox) 30 mg SC DAILY [facility] Last Admin: 06/14/18 10:46 Dose: 30 mg Furosemide (Lasix) 40 mg IVP DAILY [facility] Last Admin: 06/14/18 10:46 Dose: 40 mg Latanoprost (Xalatan Opht) 0 ml OU HS [facility] Last Admin: 06/14/18 22:07 Dose: 2.5 ml Methylprednisolone (Solu-Medrol) 40 mg IVP Q8 [facility] Last Admin: 06/14/18 21:35 Dose: 40 mg Metoprolol Succinate (Toprol Xl) 50 mg PO DAILY [facility] Last Admin: 06/14/18 10:46 Dose: 50 mg Moxifloxacin HCl (Avelox) 400 mg PO Q24H [facility] Last Admin: 06/14/18 13:15 Dose: 400 mg Pantoprazole Sodium (Protonix Ec Tab) 40 mg PO DAILY [facility] Last Admin: 06/14/18 10:46 Dose: 40 mg Physical Exam - Constitutional Appears: Well - Head Exam Head Exam: ATRAUMATIC, NORMAL INSPECTION, NORMOCEPHALIC - Eye Exam Eye Exam: EOMI, Normal appearance. absent: Conjunctival injection Pupil Exam: NORMAL ACCOMODATION, PERRL - ENT Exam ENT Exam: Mucous Membranes Dry. absent: Mucous Membranes Moist - Neck Exam Neck exam: Positive for: Full Rom, Normal Inspection. Negative for: Lymphadenopathy, Meningismus, Tenderness, Thyromegaly - Respiratory Exam Respiratory Exam: Decreased Breath Sounds, Prolonged Expiratory Phase, Wheezes. absent: Accessory Muscle Use, Chest Wall Tenderness, Clear to Auscultation Bilateral, Rales, Rhonchi, Respiratory Distress - Cardiovascular Exam Cardiovascular Exam: REGULAR RHYTHM, RRR, +S1, +S2. absent: Bradycardia, Tachycardia, JVD - Extremities Exam Extremities exam: Positive for: full ROM, normal capillary refill, pedal edema. Negative for: calf tenderness, joint swelling, normal inspection Results - Vital Signs Recent Vital Signs: Last Vital Signs Temp 97.4 F L 06/14/18 15:10 Pulse 73 06/14/18 22:27 Resp 20 06/14/18 15:10 BP 132/72 06/14/18 18:13 Pulse Ox 95 06/14/18 15:10 - Labs Result Diagrams: 06/18/18 07:05 06/18/18 07:05 Labs: Laboratory Results - last 24 hr 06/14/18 02:19 POC Glucose (mg/dL) 150 H Assessment & Plan (1) COPD exacerbation Status: Acute Priority: High Comment: COPD exacerbation. CHF. Continue nebulizer INH Q6 [facility]. Continue IV steroids with Solu-Medrol 40 mg IVP Q8 [facility]. Continue Suplemental O2,. Keep saturation >92%. Wean off BIPAP, Use of BIPAP as needed (2) Respiratory distress Status: Acute Priority: High Comment: As per COPD, plus. Diuresis with Lasix 40 mg IVP DAILY (3) CHF (congestive heart failure) Status: Acute Priority: High Comment: Furosemide (Lasix) 40 mg IVP DAILY. Wean off FIO2. Optimize fluid status. Strict I&O, daily Wt. Negative fluid balance (4) Dyspnea Status: Acute Priority: High
[2018-06-15] MEDS: Albuterol-Ipratrop 3 mg / 0.5 (3 ml) UD INH SCH ×4 (01:38→19:50)
[2018-06-15] MEDS: MethylPREDNISolone 40 mg Vial IVP SCH ×3 (06:05→21:17)
[2018-06-15] MEDS: Metoprolol Succinate 50 mg XL Tab PO SCH (10:33)
[2018-06-15] MEDS: Pantoprazole 40 mg EC Tab PO SCH (10:33)
[2018-06-15] MEDS: Enoxaparin 30 mg Syringe SC SCH (10:34)
--- NOTE | 2018-06-15 12:14 | CP.PCM.PN ---
Subjective - Date & Time of Evaluation Date of Evaluation: 06/15/18 Time of Evaluation: 11:40 - Subjective Subjective: 88 year old female with pmh asthma, bronchitis, chf consulted for COPD exacerbation. SpO2 95-100% on 2LPM O2 via NC. Reports overall feeling a little better today but still some chest tightness and discomfort. Still has dry cough. No hemoptysis. Patient evaluated at bedside, no acute distress. Afebrile, on NC 2LPM. Decreased breath sounds. Continue nebulizer as needed Continue solumedrol Continue O2, BiPap as needed Continue antibiotics Objective - Vital Signs/Intake and Output Vital Signs (last 24 hours): Temp Pulse Resp BP Pulse Ox 97.4 F L 78 20 131/69 100 06/14/18 23:10 06/14/18 23:10 06/14/18 23:10 06/15/18 10:34 06/14/18 23:10 Intake and Output: 06/15/18 06/15/18 06:59 18:59 Intake Total 450 Balance 450 - Medications Medications: Current Medications Albuterol/Ipratropium (Duoneb 3 Mg/0.5 Mg (3 Ml) Ud) 3 ml INH Q6 [facility] Stop: 06/17/18 04:01 Last Admin: 06/15/18 08:37 Dose: Not Given Amlodipine Besylate (Norvasc) 5 mg PO DAILY [facility] Last Admin: 06/15/18 10:34 Dose: 5 mg Aspirin (Ecotrin) 81 mg PO DAILY [facility] Last Admin: 06/15/18 10:34 Dose: 81 mg Carvedilol (Coreg) 12.5 mg PO BID [facility] Last Admin: 06/15/18 10:33 Dose: 12.5 mg Clonazepam (Klonopin) 0.5 mg PO HS [facility] Last Admin: 06/14/18 21:33 Dose: 0.5 mg Enoxaparin Sodium (Lovenox) 30 mg SC DAILY [facility] Last Admin: 06/15/18 10:34 Dose: 30 mg Furosemide (Lasix) 40 mg IVP DAILY [facility] Last Admin: 06/15/18 10:34 Dose: 40 mg Latanoprost (Xalatan Opht) 0 ml OU HS [facility] Last Admin: 06/14/18 22:07 Dose: 2.5 ml Methylprednisolone (Solu-Medrol) 40 mg IVP Q8 [facility] Last Admin: 06/15/18 06:05 Dose: 40 mg Metoprolol Succinate (Toprol Xl) 50 mg PO DAILY [facility] Last Admin: 06/15/18 10:33 Dose: 50 mg Moxifloxacin HCl (Avelox) 400 mg PO Q24H [facility] Last Admin: 06/15/18 12:01 Dose: 400 mg Pantoprazole Sodium (Protonix Ec Tab) 40 mg PO DAILY [facility] Last Admin: 06/15/18 10:33 Dose: 40 mg - Labs Labs: 06/12/18 00:20 06/12/18 01:01 PT 10.7 SECONDS (9.7-12.2) 06/12/18 00:20 INR 1.0 06/12/18 00:20 APTT 30 SECONDS (21-34) 06/12/18 00:20 Assessment and Plan (1) COPD exacerbation Status: Acute (2) CHF (congestive heart failure) Status: Acute
--- NOTE | 2018-06-15 12:15 | CP.PCM.CON ---
History of Present Illness - History of Present Illness History of Present Illness: 77 year old male with GIB POD1 colonoscopy with polypectomy, POD2 EGD. Patient evaluated at bedside No cough, shortness of breath, chest pain. No acute distress, afebrile, tachycardic on 2LPM O2 via NC, SpO2 94-98% 06/12 CXR bilateral atelectasis with small left pleural effusion, cardiomegaly 06/15 WBC 6.2, Cl 111, CO2 28 Continue [email or web address] Continue O2 Continue medical management Past Patient History - Infectious Disease Hx of Infectious Diseases: None - Past Social History Smoking Status: Former Smoker - CARDIAC Hx Congestive Heart Failure: Yes Hx Hypertension: Yes - PULMONARY Hx Chronic Obstructive Pulmonary Disease (COPD): Yes - NEUROLOGICAL Hx Neurological Disorder: Yes - HEENT Hx HEENT Problems: Yes Hx Glaucoma: Yes (on eye drops) Other/Comment: [place] - RENAL Hx Chronic Kidney Disease: No - ENDOCRINE/METABOLIC Hx Endocrine Disorders: No - HEMATOLOGICAL/ONCOLOGICAL Hx Blood Disorders: No - INTEGUMENTARY Hx Dermatological Problems: No - MUSCULOSKELETAL/RHEUMATOLOGICAL Hx Arthritis: Yes - GASTROINTESTINAL Hx Gastrointestinal Disorders: Yes Other/Comment: constipation - GENITOURINARY/GYNECOLOGICAL Hx Genitourinary Disorders: Yes Hx Urinary Tract Infection: Yes Other/Comment: bladder surgery pulled it up - PSYCHIATRIC Hx Anxiety: Yes (on clonazapam) Hx Depression: Yes Hx Substance Use: No - SURGICAL HISTORY Hx Surgeries: Yes Hx Eye Surgery: Yes Other/Comment: mitral valve repair- 15yrs ago - ANESTHESIA Hx Anesthesia: Yes Hx Anesthesia Reactions: No Hx Malignant Hyperthermia: No Meds Allergies/Adverse Reactions: Allergies Allergy/AdvReac Type Severity Reaction Status Date / Time Penicillins Allergy Severe RASH Verified 09/12/15 05:17 urografina,amidotrzoato de Allergy Severe RASH Uncoded 09/12/15 05:17 meglumin - Medications Medications: Current Medications Albuterol/Ipratropium (Duoneb 3 Mg/0.5 Mg (3 Ml) Ud) 3 ml INH Q6 [facility] Stop: 06/17/18 04:01 Last Admin: 06/15/18 08:37 Dose: Not Given Amlodipine Besylate (Norvasc) 5 mg PO DAILY [facility] Last Admin: 06/15/18 10:34 Dose: 5 mg Aspirin (Ecotrin) 81 mg PO DAILY [facility] Last Admin: 06/15/18 10:34 Dose: 81 mg Carvedilol (Coreg) 12.5 mg PO BID [facility] Last Admin: 06/15/18 10:33 Dose: 12.5 mg Clonazepam (Klonopin) 0.5 mg PO HS [facility] Last Admin: 06/14/18 21:33 Dose: 0.5 mg Enoxaparin Sodium (Lovenox) 30 mg SC DAILY [facility] Last Admin: 06/15/18 10:34 Dose: 30 mg Furosemide (Lasix) 40 mg IVP DAILY [facility] Last Admin: 06/15/18 10:34 Dose: 40 mg Latanoprost (Xalatan Opht) 0 ml OU HS [facility] Last Admin: 06/14/18 22:07 Dose: 2.5 ml Methylprednisolone (Solu-Medrol) 40 mg IVP Q8 [facility] Last Admin: 06/15/18 06:05 Dose: 40 mg Metoprolol Succinate (Toprol Xl) 50 mg PO DAILY [facility] Last Admin: 06/15/18 10:33 Dose: 50 mg Moxifloxacin HCl (Avelox) 400 mg PO Q24H [facility] Last Admin: 06/15/18 12:01 Dose: 400 mg Pantoprazole Sodium (Protonix Ec Tab) 40 mg PO DAILY [facility] Last Admin: 06/15/18 10:33 Dose: 40 mg Results - Vital Signs Recent Vital Signs: Last Vital Signs Temp 97.4 F L 06/14/18 23:10 Pulse 78 06/14/18 23:10 Resp 20 06/14/18 23:10 BP 131/69 06/15/18 10:34 Pulse Ox 100 06/14/18 23:10 - Labs Result Diagrams: 06/12/18 00:20 06/12/18 01:01 Assessment & Plan (1) COPD exacerbation Status: Acute (2) CHF (congestive heart failure) Status: Acute
[2018-06-15] MEDS: Latanoprost 2.5 ml Opht Soln OU SCH (21:17)
--- NOTE | 2018-06-15 21:34 | CP.PCM.PN ---
Subjective - Date & Time of Evaluation Date of Evaluation: 06/15/18 Time of Evaluation: 10:00 - Subjective Subjective: clinically same Objective - Vital Signs/Intake and Output Vital Signs (last 24 hours): Temp Pulse Resp BP Pulse Ox 97.2 F L 114 H 20 95/59 L 94 L 06/15/18 15:00 06/15/18 15:00 06/15/18 15:00 06/15/18 17:07 06/15/18 15:00 - Medications Medications: Current Medications Albuterol/Ipratropium (Duoneb 3 Mg/0.5 Mg (3 Ml) Ud) 3 ml INH Q6 [facility] Stop: 06/17/18 04:01 Last Admin: 06/15/18 19:50 Dose: 3 ml Amlodipine Besylate (Norvasc) 5 mg PO DAILY [facility] Last Admin: 06/15/18 10:34 Dose: 5 mg Aspirin (Ecotrin) 81 mg PO DAILY [facility] Last Admin: 06/15/18 10:34 Dose: 81 mg Carvedilol (Coreg) 12.5 mg PO BID [facility] Last Admin: 06/15/18 17:07 Dose: Not Given Clonazepam (Klonopin) 0.5 mg PO HS [facility] Last Admin: 06/15/18 21:17 Dose: 0.5 mg Enoxaparin Sodium (Lovenox) 30 mg SC DAILY [facility] Last Admin: 06/15/18 10:34 Dose: 30 mg Furosemide (Lasix) 40 mg IVP DAILY [facility] Last Admin: 06/15/18 10:34 Dose: 40 mg Latanoprost (Xalatan Opht) 0 ml OU HS [facility] Last Admin: 06/15/18 21:17 Dose: 2.5 ml Methylprednisolone (Solu-Medrol) 40 mg IVP Q8 [facility] Last Admin: 06/15/18 21:17 Dose: 40 mg Metoprolol Succinate (Toprol Xl) 50 mg PO DAILY [facility] Last Admin: 06/15/18 10:33 Dose: 50 mg Moxifloxacin HCl (Avelox) 400 mg PO Q24H [facility] Last Admin: 06/15/18 12:01 Dose: 400 mg Pantoprazole Sodium (Protonix Ec Tab) 40 mg PO DAILY [facility] Last Admin: 06/15/18 10:33 Dose: 40 mg - Labs Labs: 06/12/18 00:20 06/12/18 01:01 PT 10.7 SECONDS (9.7-12.2) 06/12/18 00:20 INR 1.0 06/12/18 00:20 APTT 30 SECONDS (21-34) 06/12/18 00:20
[2018-06-16] MEDS: Albuterol-Ipratrop 3 mg / 0.5 (3 ml) UD INH SCH ×4 (01:10→20:16)
[2018-06-16] MEDS: MethylPREDNISolone 40 mg Vial IVP SCH ×3 (06:23→21:22)
[2018-06-16] MEDS: Enoxaparin 30 mg Syringe SC SCH (09:09)
[2018-06-16] MEDS: Metoprolol Succinate 50 mg XL Tab PO SCH (09:09)
[2018-06-16] MEDS: Pantoprazole 40 mg EC Tab PO SCH (09:09)
[2018-06-16 13:53] LABS: BASO % 0.3 % (0.0-2.0); HEMOGLOBIN 12.2 g/dL (11.0-16.0); LYMPH # 0.4 K/uL (1.0-4.3); LYMPH % 6.1 % (20.0-40.0); MEAN CELL VOLUME 99.4 fL (81.0-99.0); MEAN CORPUSCULAR HEMOGLOBIN 32.1 pg (27.0-31.0); MEAN CORPUSCULAR HGB CONC 32.3 g/dL (33.0-37.0); MEAN PLATELET VOLUME 10.4 fL (7.2-11.7); MONO # 0.3 K/uL (0.0-0.8); MONO % 3.8 % (0.0-10.0); NEUT # 5.9 K/uL (1.8-7.0); NEUT % 89.8 % (50.0-75.0); PLATELET COUNT 243 K/uL (130-400); RBC 3.81 Mil/uL (3.80-5.20); RED CELL DISTRIBUTION WIDTH 14.6 % (11.5-14.5); WHITE BLOOD COUNT 6.5 K/uL (4.8-10.8)
[2018-06-16 14:08] LABS: CALCIUM 8.2 mg/dl (8.6-10.4)
[2018-06-16 14:13] LABS: ANISOCYTOSIS SLIGHT; LYMPHOCYTE 7 % (20-40); MONOCYTE 3 % (0-10); NEUTROPHIL 90 % (50-75); PLATELET ESTIMATE NORMAL (NORMAL); TOTAL CELLS COUNTED 100
[2018-06-16 14:14] LABS: HYPOCHROMIC SLIGHT; LARGE PLATELETS PRESENT
[2018-06-16 14:15] LABS: OVALOCYTES SLIGHT; POIKILOCYTOSIS SLIGHT
[2018-06-16] MEDS: Latanoprost 2.5 ml Opht Soln OU SCH (21:22)
--- NOTE | 2018-06-16 22:22 | CP.PCM.PN ---
Subjective - Date & Time of Evaluation Date of Evaluation: 06/16/18 Time of Evaluation: 09:15 - Subjective Subjective: clinically same Objective - Vital Signs/Intake and Output Vital Signs (last 24 hours): Temp Pulse Resp BP Pulse Ox 97.6 F 74 20 114/60 100 06/16/18 15:06 06/16/18 15:06 06/16/18 15:06 06/16/18 17:34 06/16/18 15:06 Intake and Output: 06/16/18 06/17/18 18:59 06:59 Intake Total 250 Balance 250 - Medications Medications: Current Medications Albuterol/Ipratropium (Duoneb 3 Mg/0.5 Mg (3 Ml) Ud) 3 ml INH Q6 [facility] Stop: 06/17/18 04:01 Last Admin: 06/16/18 20:16 Dose: 3 ml Amlodipine Besylate (Norvasc) 5 mg PO DAILY [facility] Last Admin: 06/16/18 09:09 Dose: Not Given Aspirin (Ecotrin) 81 mg PO DAILY [facility] Last Admin: 06/16/18 09:09 Dose: 81 mg Carvedilol (Coreg) 12.5 mg PO BID [facility] Last Admin: 06/16/18 17:34 Dose: 12.5 mg Clonazepam (Klonopin) 0.5 mg PO HS [facility] Last Admin: 06/16/18 21:22 Dose: 0.5 mg Enoxaparin Sodium (Lovenox) 30 mg SC DAILY [facility] Last Admin: 06/16/18 09:09 Dose: 30 mg Furosemide (Lasix) 40 mg IVP DAILY [facility] Last Admin: 06/16/18 09:10 Dose: Not Given Latanoprost (Xalatan Opht) 0 ml OU HS [facility] Last Admin: 06/16/18 21:22 Dose: 2.5 ml Methylprednisolone (Solu-Medrol) 40 mg IVP Q8 [facility] Last Admin: 06/16/18 21:22 Dose: 40 mg Metoprolol Succinate (Toprol Xl) 50 mg PO DAILY [facility] Last Admin: 06/16/18 09:09 Dose: Not Given Moxifloxacin HCl (Avelox) 400 mg PO Q24H [facility] Last Admin: 06/16/18 12:10 Dose: 400 mg Pantoprazole Sodium (Protonix Ec Tab) 40 mg PO DAILY [facility] Last Admin: 06/16/18 09:09 Dose: 40 mg - Labs Labs: 06/16/18 13:46 06/16/18 13:46 PT 10.7 SECONDS (9.7-12.2) 06/12/18 00:20 INR 1.0 06/12/18 00:20 APTT 30 SECONDS (21-34) 06/12/18 00:20
[2018-06-17] MEDS: Albuterol-Ipratrop 3 mg / 0.5 (3 ml) UD INH SCH ×4 (01:10→20:16)
[2018-06-17] MEDS: MethylPREDNISolone 40 mg Vial IVP SCH ×3 (06:21→21:29)
[2018-06-17] MEDS: Metoprolol Succinate 50 mg XL Tab PO SCH (09:35)
[2018-06-17] MEDS: Pantoprazole 40 mg EC Tab PO SCH (09:35)
[2018-06-17] MEDS: Enoxaparin 30 mg Syringe SC SCH (09:36)
--- NOTE | 2018-06-17 11:23 | CP.PCM.PN ---
Subjective - Date & Time of Evaluation Date of Evaluation: 06/17/18 Time of Evaluation: 09:45 - Subjective Subjective: patient seen and examined Breathing much improved Afebrile Stable from pulmonary standpoint Objective - Vital Signs/Intake and Output Vital Signs (last 24 hours): Temp Pulse Resp BP Pulse Ox 98.4 F 77 20 138/80 97 06/17/18 08:17 06/17/18 08:17 06/17/18 08:17 06/17/18 09:35 06/17/18 08:17 Intake and Output: 06/17/18 06/17/18 06:59 18:59 Intake Total 370 Balance 370 - Medications Medications: Current Medications Amlodipine Besylate (Norvasc) 5 mg PO DAILY [facility] Last Admin: 06/17/18 09:35 Dose: 5 mg Aspirin (Ecotrin) 81 mg PO DAILY [facility] Last Admin: 06/17/18 09:35 Dose: 81 mg Carvedilol (Coreg) 12.5 mg PO BID [facility] Last Admin: 06/17/18 09:35 Dose: 12.5 mg Clonazepam (Klonopin) 0.5 mg PO HS [facility] Last Admin: 06/16/18 21:22 Dose: 0.5 mg Enoxaparin Sodium (Lovenox) 30 mg SC DAILY [facility] Last Admin: 06/17/18 09:36 Dose: 30 mg Furosemide (Lasix) 40 mg IVP DAILY [facility] Last Admin: 06/17/18 09:35 Dose: 40 mg Latanoprost (Xalatan Opht) 0 ml OU HS [facility] Last Admin: 06/16/18 21:22 Dose: 2.5 ml Methylprednisolone (Solu-Medrol) 40 mg IVP Q8 [facility] Last Admin: 06/17/18 06:21 Dose: 40 mg Metoprolol Succinate (Toprol Xl) 50 mg PO DAILY [facility] Last Admin: 06/17/18 09:35 Dose: 50 mg Moxifloxacin HCl (Avelox) 400 mg PO Q24H [facility] Last Admin: 06/16/18 12:10 Dose: 400 mg Pantoprazole Sodium (Protonix Ec Tab) 40 mg PO DAILY [facility] Last Admin: 06/17/18 09:35 Dose: 40 mg - Labs Labs: 06/16/18 13:46 06/16/18 13:46 PT 10.7 SECONDS (9.7-12.2) 06/12/18 00:20 INR 1.0 06/12/18 00:20 APTT 30 SECONDS (21-34) 06/12/18 00:20 Assessment and Plan (1) COPD exacerbation Status: Acute (2) CHF (congestive heart failure) Status: Acute
--- NOTE | 2018-06-17 19:33 | CP.PCM.PN ---
Subjective - Date & Time of Evaluation Date of Evaluation: 06/17/18 Time of Evaluation: 10:15 - Subjective Subjective: clinically same Objective - Vital Signs/Intake and Output Vital Signs (last 24 hours): Temp Pulse Resp BP Pulse Ox 97.5 F L 82 20 130/80 100 06/17/18 15:05 06/17/18 15:05 06/17/18 15:05 06/17/18 17:55 06/17/18 15:05 - Medications Medications: Current Medications Albuterol/Ipratropium (Duoneb 3 Mg/0.5 Mg (3 Ml) Ud) 3 ml INH RQ6 [facility] Last Admin: 06/17/18 13:15 Dose: 3 ml Amlodipine Besylate (Norvasc) 5 mg PO DAILY [facility] Last Admin: 06/17/18 09:35 Dose: 5 mg Aspirin (Ecotrin) 81 mg PO DAILY [facility] Last Admin: 06/17/18 09:35 Dose: 81 mg Carvedilol (Coreg) 12.5 mg PO BID [facility] Last Admin: 06/17/18 17:55 Dose: 12.5 mg Clonazepam (Klonopin) 0.5 mg PO HS [facility] Last Admin: 06/16/18 21:22 Dose: 0.5 mg Enoxaparin Sodium (Lovenox) 30 mg SC DAILY [facility] Last Admin: 06/17/18 09:36 Dose: 30 mg Furosemide (Lasix) 40 mg IVP DAILY [facility] Last Admin: 06/17/18 09:35 Dose: 40 mg Latanoprost (Xalatan Opht) 0 ml OU HS [facility] Last Admin: 06/16/18 21:22 Dose: 2.5 ml Methylprednisolone (Solu-Medrol) 40 mg IVP Q8 [facility] Last Admin: 06/17/18 13:16 Dose: 40 mg Metoprolol Succinate (Toprol Xl) 50 mg PO DAILY [facility] Last Admin: 06/17/18 09:35 Dose: 50 mg Moxifloxacin HCl (Avelox) 400 mg PO DAILY [facility]; Protocol Last Admin: 06/17/18 12:44 Dose: 400 mg Pantoprazole Sodium (Protonix Ec Tab) 40 mg PO DAILY [facility] Last Admin: 06/17/18 09:35 Dose: 40 mg - Labs Labs: 06/16/18 13:46 06/16/18 13:46 PT 10.7 SECONDS (9.7-12.2) 06/12/18 00:20 INR 1.0 06/12/18 00:20 APTT 30 SECONDS (21-34) 06/12/18 00:20
[2018-06-17] MEDS: Latanoprost 2.5 ml Opht Soln OU SCH (21:29)
[2018-06-18] MEDS: MethylPREDNISolone 40 mg Vial IVP SCH ×3 (05:38→21:39)
[2018-06-18 07:17] LABS: BASO % 0.1 % (0.0-2.0); HEMOGLOBIN 11.7 g/dL (11.0-16.0); LYMPH # 0.4 K/uL (1.0-4.3); LYMPH % 7.1 % (20.0-40.0); MEAN CELL VOLUME 98.3 fL (81.0-99.0); MEAN CORPUSCULAR HEMOGLOBIN 32.4 pg (27.0-31.0); MEAN CORPUSCULAR HGB CONC 32.9 g/dL (33.0-37.0); MEAN PLATELET VOLUME 10.6 fL (7.2-11.7); MONO # 0.3 K/uL (0.0-0.8); MONO % 4.9 % (0.0-10.0); NEUT # 5.3 K/uL (1.8-7.0); NEUT % 87.9 % (50.0-75.0); PLATELET COUNT 223 K/uL (130-400); RBC 3.62 Mil/uL (3.80-5.20); RED CELL DISTRIBUTION WIDTH 14.5 % (11.5-14.5)
[2018-06-18 07:53] LABS: ALB/GLOB RATIO 1.5 (1.0-2.1); ALBUMIN 3.3 g/dL (3.5-5.0)
[2018-06-18] MEDS: Albuterol-Ipratrop 3 mg / 0.5 (3 ml) UD INH SCH ×3 (08:00→20:06)
[2018-06-18 09:11] LABS: LYMPHOCYTE 6 % (20-40); MONOCYTE 2 % (0-10); NEUTROPHIL 92 % (50-75); TOTAL CELLS COUNTED 100
[2018-06-18 09:12] LABS: PLATELET ESTIMATE NORMAL (NORMAL)
[2018-06-18] MEDS: Enoxaparin 30 mg Syringe SC SCH (09:25)
[2018-06-18] MEDS: Metoprolol Succinate 50 mg XL Tab PO SCH (09:25)
[2018-06-18] MEDS: Pantoprazole 40 mg EC Tab PO SCH (09:25)
--- NOTE | 2018-06-18 11:22 | CARD ---
APPROVED REPORT Date of service: 06/15/2018 EXAM: Two-dimensional and M-mode echocardiogram with Doppler and color Doppler. Other Information Quality : GoodRhythm : INDICATION Dyspnea Congestive Heart Failure COPD 2D DIMENSIONS IVSd1.2 (0.7-1.1cm)LVDd5.0 (3.9-5.9cm) LVOT Diameter2.0 (1.8-2.4cm)PWd1.2 (0.7-1.1cm) LA Exphat49 (18-58mL)LVDs3.4 (2.5-4.0cm) FS (%) 30.7 %LVEF (Nix's)45 % M-Mode DIMENSIONS Left Atrium (MM)3.01 (2.5-4.0cm)IVSd1.09 (0.7-1.1cm) Aortic Root3.48 (2.2-3.7cm)LVDd5.51 (4.0-5.6cm) Aortic Cusp Exc.1.30 (1.5-2.0cm)PWd1.16 (0.7-1.1cm) FS (%) 24 %LVDs4.17 (2.0-3.8cm) LVEF (%)40 (>50%) Aortic Valve AoV Peak Lasorgjd896.2cm/sAoV VTI48.6cmAO Peak GR.26mmHg LVOT Peak Bvbiygpr919.1cm/sLVOT VTI36.29cmAO Mean GR.15mmHg MIR (VMAX)2.65fx3QEX (VTI)2.43et4ZP P 1/2 Lhow546iv Mitral Valve MV E Nzwmawmu074.2cm/sMV E Peak Gr.22mmHgMV A Dfqimumt152.6cm/s MV E Mean Gr.12mmHgMV HTS068cbM/A ratio0.8 MVA (PHT)1.99cm2 TDI Lateral E' Peak V5.19cm/sMedial E' Peak V3.25cm/sE/Lateral E'31.4 E/Medial E'50.2 Tricuspid Valve TR Peak Ccupygln050gz/sTR Peak Gr.51kvCvEFSY19waWy LEFT VENTRICLE The Left Ventricle is moderately dilated. There is normal left ventricular wall thickness. Left ventricle systolic function is borderline. The Ejection Fraction is 45-50%. There is mild global hypokinesis of the left ventricle. Tissue Doppler imaging reveals abnormal left ventricular diastolic dysfunction. RIGHT VENTRICLE The right ventricle is normal size. There is normal right ventricular wall thickness. Systolic function is borderline reduced. ATRIA The left atrium is mildly dilated. The right atrium size is normal. The interatrial septum is intact with no evidence for an atrial septal defect. AORTIC VALVE The aortic valve is normal in structure. There is moderate aortic regurgitation. There is no aortic valvular stenosis. MITRAL VALVE Mitral annular calcification is mild to moderate. There is no evidence of mitral valve prolapse. There is no mitral valve stenosis. Mitral regurgitation is mild. TRICUSPID VALVE The tricuspid valve is normal in structure. There is moderate tricuspid regurgitation. Right ventricular systolic pressure is estimated at 50-60 mmHg. There is moderate-severe pulmonary hypertension. PULMONIC VALVE The pulmonic valve is not well visualized. There is mild pulmonic valvular regurgitation. GREAT VESSELS The aortic root is normal in size. PERICARDIAL EFFUSION There is no pericardial effusion. <Conclusion> Left ventricle systolic function is borderline. The Ejection Fraction is 45-50%. Diastolic dysfunction. There is no aortic stenosis. There is moderate aortic regurgitation. Mitral regurgitation is mild. There is moderate tricuspid regurgitation. There is moderate-severe pulmonary hypertension. There is mild pulmonic valvular regurgitation.
--- NOTE | 2018-06-18 12:25 | CP.PCM.PN ---
Subjective - Date & Time of Evaluation Date of Evaluation: 06/18/18 Time of Evaluation: 10:45 - Subjective Subjective: clinically same Objective - Vital Signs/Intake and Output Vital Signs (last 24 hours): Temp Pulse Resp BP Pulse Ox 97.2 F L 72 20 133/64 96 06/18/18 07:00 06/18/18 07:00 06/18/18 07:00 06/18/18 09:25 06/18/18 07:00 Intake and Output: 06/18/18 06/18/18 06:59 18:59 Intake Total 370 Balance 370 - Medications Medications: Current Medications Albuterol/Ipratropium (Duoneb 3 Mg/0.5 Mg (3 Ml) Ud) 3 ml INH RQ6 [facility] Last Admin: 06/17/18 20:16 Dose: 3 ml Amlodipine Besylate (Norvasc) 5 mg PO DAILY [facility] Last Admin: 06/18/18 09:25 Dose: 5 mg Aspirin (Ecotrin) 81 mg PO DAILY [facility] Last Admin: 06/18/18 09:25 Dose: 81 mg Carvedilol (Coreg) 12.5 mg PO BID [facility] Last Admin: 06/18/18 09:25 Dose: 12.5 mg Clonazepam (Klonopin) 0.5 mg PO HS [facility] Last Admin: 06/17/18 21:29 Dose: 0.5 mg Enoxaparin Sodium (Lovenox) 30 mg SC DAILY [facility] Last Admin: 06/18/18 09:25 Dose: 30 mg Furosemide (Lasix) 40 mg IVP DAILY [facility] Last Admin: 06/18/18 09:25 Dose: 40 mg Latanoprost (Xalatan Opht) 0 ml OU HS [facility] Last Admin: 06/17/18 21:29 Dose: 2.5 ml Methylprednisolone (Solu-Medrol) 40 mg IVP Q8 [facility] Last Admin: 06/18/18 05:38 Dose: 40 mg Metoprolol Succinate (Toprol Xl) 50 mg PO DAILY [facility] Last Admin: 06/18/18 09:25 Dose: 50 mg Moxifloxacin HCl (Avelox) 400 mg PO DAILY [facility]; Protocol Last Admin: 06/18/18 09:25 Dose: 400 mg Pantoprazole Sodium (Protonix Ec Tab) 40 mg PO DAILY [facility] Last Admin: 06/18/18 09:25 Dose: 40 mg - Labs Labs: 12/31/18 07:05 06/18/18 07:05 PT 10.7 SECONDS (9.7-12.2) 06/12/18 00:20 INR 1.0 06/12/18 00:20 APTT 30 SECONDS (21-34) 06/12/18 00:20
[2018-06-18] MEDS: Latanoprost 2.5 ml Opht Soln OU SCH (21:39)
[2018-06-19] MEDS: Albuterol-Ipratrop 3 mg / 0.5 (3 ml) UD INH SCH ×3 (01:18→14:18)
[2018-06-19] MEDS: MethylPREDNISolone 40 mg Vial IVP SCH ×2 (05:32→13:33)
[2018-06-19] MEDS: Metoprolol Succinate 50 mg XL Tab PO SCH (09:25)
[2018-06-19] MEDS: Pantoprazole 40 mg EC Tab PO SCH (09:25)
[2018-06-19] MEDS: Enoxaparin 30 mg Syringe SC SCH (09:26)
--- NOTE | 2018-06-19 16:02 | CP.PCM.PN ---
Subjective - Date & Time of Evaluation Date of Evaluation: 06/19/18 Time of Evaluation: 09:30 - Subjective Subjective: clinically same Objective - Vital Signs/Intake and Output Vital Signs (last 24 hours): Temp Pulse Resp BP Pulse Ox 98.3 F 70 18 133/69 98 06/19/18 07:50 06/19/18 07:50 06/19/18 07:50 06/19/18 09:25 06/19/18 07:50 Intake and Output: 06/19/18 06/19/18 06:59 18:59 Intake Total 400 Balance 400 - Medications Medications: Current Medications Albuterol/Ipratropium (Duoneb 3 Mg/0.5 Mg (3 Ml) Ud) 3 ml INH RQ6 [facility] Last Admin: 06/19/18 14:18 Dose: 3 ml Amlodipine Besylate (Norvasc) 5 mg PO DAILY [facility] Last Admin: 06/19/18 09:25 Dose: 5 mg Aspirin (Ecotrin) 81 mg PO DAILY [facility] Last Admin: 06/19/18 09:25 Dose: 81 mg Carvedilol (Coreg) 12.5 mg PO BID [facility] Last Admin: 06/19/18 09:25 Dose: 12.5 mg Clonazepam (Klonopin) 0.5 mg PO HS [facility] Last Admin: 06/18/18 21:39 Dose: 0.5 mg Enoxaparin Sodium (Lovenox) 30 mg SC DAILY [facility] Last Admin: 06/19/18 09:26 Dose: 30 mg Furosemide (Lasix) 40 mg IVP DAILY [facility] Last Admin: 06/19/18 09:25 Dose: 40 mg Latanoprost (Xalatan Opht) 0 ml OU HS [facility] Last Admin: 06/18/18 21:39 Dose: 2.5 ml Methylprednisolone (Solu-Medrol) 40 mg IVP Q8 [facility] Last Admin: 06/19/18 13:33 Dose: 40 mg Metoprolol Succinate (Toprol Xl) 50 mg PO DAILY [facility] Last Admin: 06/19/18 09:25 Dose: 50 mg Moxifloxacin HCl (Avelox) 400 mg PO DAILY [facility]; Protocol Last Admin: 06/19/18 09:25 Dose: 400 mg Pantoprazole Sodium (Protonix Ec Tab) 40 mg PO DAILY [facility] Last Admin: 06/19/18 09:25 Dose: 40 mg - Labs Labs: 06/18/18 07:05 06/18/18 07:05 PT 10.7 SECONDS (9.7-12.2) 06/12/18 00:20 INR 1.0 06/12/18 00:20 APTT 30 SECONDS (21-34) 06/12/18 00:20
--- NOTE | 2018-06-19 16:40 | CARD ---
APPROVED REPORT Date of service: 06/15/2018 Protocol: LEXISCAN Test Type: LEXISCAN Test Indications: CHFDYSPNEA Medications: LIST Medical History: CP Target HR: 132 bpm Resting ECG: left bundle branch block Resting Heart Rate: 76 bpm Resting Blood Pressure: 110/60mmHg submaximum (85%): 112 bpm TEST SUMMARY FLDDCYZFXIHPDW13:02..1.077/.0. PREINFSNHYPERV.02:510.00.01.275675/60.5. INFUSIONDOSE 100:300.00.01.271132/60.3. ZFGLYIQRC52:520.00.01.326766/70.0. PROCEDURE Pharmacologic stress testing was performed using 0.4mg per 5ml of regadenoson given intravenously over 7-10 seconds. POST EXERCISE Reason for Termination: Protocol Completed Target HR: No Max HR: 76 bpm 71% of Maximum Predicted HR: 132 bpm Exercise duration: 00:30 min:sec, 0 Stage Exercise capacity: 1.0METs Max Blood Pressure: 140/70mmHg Blood Pressure response to exercise: N/A Heart Rate response to exercise: N/A Chest Pain: No, none Angina index: 0 Arrhythmia: No, none ST Change: No, none Deviation: 0 mm EXAM: Myocardial Perfusion REST/STRESS Imaging Protocol The imaging protocol used to acquire images was Rest Tc-99m/stress Tc-99m 1 day Rest Spect myocardial perfusion imaging was performed in supine position 45 minutes following the injection of 12.5 mCi of Tc-99 Myoview. Gated Stress Spect was performed 45 minutes after intravenous 32.5 mCi Tc-99 Myoview injection. The images were gated to evaluate regional wall motion and calculate ventricular ejection fraction.Images were reconstructed using backfilter projection method in short horizontal and verticle long axis. Spect slices were generated. RESTING DATA WIU145.99cvXM9.80L/min ESV74.00mlMyocardial Efpx940.00g Av. Heart Rate74.00bpm EF47.00% STRESS DATA QQZ935.10mnSJ7.10L/min ESV62.00mlMyocardial Jhfi712.00g EF52.00% Regional WT score at stress:2.00 Regional WM score at stress:0.00 Summed WT score at stress:16.00 Av. Heart Rate75.00bpmSummed WM score at stress:20.00 Study quality was fair. Left Ventricular size was Normal at Rest and Stress. Lung uptake was Normal. Left Ventricular ejection fraction is 52%. LV Perfusion 1 Perfusion Defect Location: lateral Perfusion Defect Size: Small (1-2 segments) Perfusion Defect Severity: Mild Type of Perfusion Defect: FixedPartially Reversible TCD/TID: No LV Perf. Quant 17 Seg. SSS1.00 17 Seg. SRS1.00 17 Seg. SDS0.00 Stress Defect Extent (% LAD)0.00Rest Defect Extent (% LAD)0.00Rev. Defect Extent (% LAD)0.00 Stress Defect Extent (% LCX)22.50Rest Defect Extent (% LCX)11.30Rev. Defect Extent (% LCX)17.50 Stress Defect Extent (% RCA)0.00Rest Defect Extent (% RCA)0.00Rev. Defect Extent (% RCA)0.00 Stress Defect Extent (% RAJNI)3.90Rest Defect Extent (% RAJNI)2.00Rev. Defect Extent (% RAJNI)3.00 Other Information Quality:Average Overall Exercise Capacity: n/a IMPRESSION Global LV Function: Normal Stress Test Summary: Normal Conclusion 1. - Small sized mild lateral wall defect - low probability for significant obstructive CAD 2. - Normal LVEF 3. - Aggressive medical management and risk factor modification
--- NOTE | 2018-06-19 16:48 | CP.PCM.PN ---
Subjective - Date & Time of Evaluation Date of Evaluation: 06/19/18 Time of Evaluation: 16:48 - Subjective Subjective: stress testing very small lateral wall defect 2' to tissue attenuation artifact sob improved Objective - Vital Signs/Intake and Output Vital Signs (last 24 hours): Temp Pulse Resp BP Pulse Ox 98.3 F 70 18 133/69 98 06/19/18 07:50 06/19/18 07:50 06/19/18 07:50 06/19/18 09:25 06/19/18 07:50 Intake and Output: 06/19/18 06/19/18 06:59 18:59 Intake Total 400 Balance 400 - Medications Medications: Current Medications Albuterol/Ipratropium (Duoneb 3 Mg/0.5 Mg (3 Ml) Ud) 3 ml INH RQ6 [facility] Last Admin: 06/19/18 14:18 Dose: 3 ml Amlodipine Besylate (Norvasc) 5 mg PO DAILY [facility] Last Admin: 06/19/18 09:25 Dose: 5 mg Aspirin (Ecotrin) 81 mg PO DAILY [facility] Last Admin: 06/19/18 09:25 Dose: 81 mg Carvedilol (Coreg) 12.5 mg PO BID [facility] Last Admin: 06/19/18 09:25 Dose: 12.5 mg Clonazepam (Klonopin) 0.5 mg PO HS [facility] Last Admin: 06/18/18 21:39 Dose: 0.5 mg Enoxaparin Sodium (Lovenox) 30 mg SC DAILY [facility] Last Admin: 06/19/18 09:26 Dose: 30 mg Furosemide (Lasix) 40 mg IVP DAILY [facility] Last Admin: 06/19/18 09:25 Dose: 40 mg Latanoprost (Xalatan Opht) 0 ml OU HS [facility] Last Admin: 06/18/18 21:39 Dose: 2.5 ml Methylprednisolone (Solu-Medrol) 40 mg IVP Q8 [facility] Last Admin: 06/19/18 13:33 Dose: 40 mg Metoprolol Succinate (Toprol Xl) 50 mg PO DAILY [facility] Last Admin: 06/19/18 09:25 Dose: 50 mg Moxifloxacin HCl (Avelox) 400 mg PO DAILY [facility]; Protocol Last Admin: 06/19/18 09:25 Dose: 400 mg Pantoprazole Sodium (Protonix Ec Tab) 40 mg PO DAILY [facility] Last Admin: 06/19/18 09:25 Dose: 40 mg - Labs Labs: 06/18/18 07:05 06/18/18 07:05 PT 10.7 SECONDS (9.7-12.2) 06/12/18 00:20 INR 1.0 06/12/18 00:20 APTT 30 SECONDS (21-34) 06/12/18 00:20 - Constitutional Appears: Well - Head Exam Head Exam: ATRAUMATIC, NORMAL INSPECTION, NORMOCEPHALIC - Eye Exam Eye Exam: EOMI, Normal appearance, PERRL Pupil Exam: NORMAL ACCOMODATION, PERRL - ENT Exam ENT Exam: Mucous Membranes Moist, Normal Exam - Neck Exam Neck Exam: Full ROM, Normal Inspection. absent: Lymphadenopathy - Respiratory Exam Respiratory Exam: Clear to Ausculation Bilateral, NORMAL BREATHING PATTERN - Cardiovascular Exam Cardiovascular Exam: REGULAR RHYTHM, +S1, +S2. absent: Murmur - GI/Abdominal Exam GI & Abdominal Exam: Soft, Normal Bowel Sounds. absent: Tenderness - Extremities Exam Extremities Exam: Full ROM, Normal Capillary Refill, Normal Inspection. absent: Joint Swelling, Pedal Edema - Back Exam Back Exam: NORMAL INSPECTION - Neurological Exam Neurological Exam: Alert, Awake, CN II-XII Intact, Normal Gait, Oriented x3 - Psychiatric Exam Psychiatric exam: Normal Affect, Normal Mood - Skin Skin Exam: Dry, Intact, Normal Color, Warm Assessment and Plan (1) CHF (congestive heart failure) Assessment & Plan: stable to dc home on coreg 12.5mg bid losartan 25mg lasix 40mg bid Status: Acute (2) COPD exacerbation Status: Acute (3) Dyspnea Status: Acute (4) Respiratory distress Status: Acute
[2018-06-19 17:23] VITALS: BP 117/64
[2018-06-19 18:08] VITALS: PULSE 79; RESP 20; TEMP 997.2; O2SAT 93
== END 2018-06-19 18:45 | disposition home or self-care (01) | DRG 302 ==
LOC: C.ER 23:53 → C.6T 06-12 01:24
PROVIDERS: ADMIT Internal Medicine Nephrology; ATTEND Internal Medicine Nephrology
PROC: 5A09557 Assistance with Respiratory Ventilation, Greater than 96 Consecutive Hours, Continuous Positive Airway Pressure (ICD-10-PCS; principal; 2018-06-12)
DX: I25.10 Atherosclerotic heart disease of native coronary artery without angina pectoris (principal); I50.33 Acute on chronic diastolic (congestive) heart failure; J44.1 Chronic obstructive pulmonary disease with (acute) exacerbation; I11.0 Hypertensive heart disease with heart failure; H40.9 Unspecified glaucoma; Z87.891 Personal history of nicotine dependence